=== PATIENT | female | born 1975 | race African-American/Black ===

== ENCOUNTER 2016-06-16 07:40 | Emergency (ER) | payer OTHER ==
[~2016-06-16] VITALS: Ht 167.6 cm; Wt 62.1 kg
[2016-06-16] MEDS ORDERED: NKM (07:49)
[2016-06-16 08:05] VITALS: BP 123/86
[2016-06-16] MEDS ORDERED: PERCOCET 5-3251 EACH ORAL (08:07)
[2016-06-16] MEDS ORDERED: CLINDAMYCIN HC300 MG ORAL (08:07)
[2016-06-16 08:09] VITALS: BP 123/86
--- NOTE | 2016-06-16 08:13 | Emergency Room Report ---
History of Present Illness General Chief Complaint: Toothache Source: Patient Present Illness HPI 41 YO F with left mouth pain s/p ? chipped tooth lower mouth started last night when she was biting into an apple, felt something break off, saw piece of tooth in her hand when she spit out apple. Last saw dentist 1 year ago. Has had cavities repaired in the past. Not sure if she has cavity or repair in left lower mouth. Denies floor of mouth elevation, fever/chills. Didnt take anything for pain. Didnt call dentist yet. Allergies: Coded Allergies: No Known Allergies (Unverified , 06/16/16) Patient History Past Medical History: none Past Surgical History: none Pertinent Family History: none Social History: Denies: alcohol use, drug use, smoking Last Menstrual Period: 1-13 Now: No Immunizations: UTD Reviewed Nursing Documentation: PMH: Agreed, PSxH: Agreed Nursing Documentation-PMH Past Medical History: No Stated History Review of Systems All Other Systems: negative except mentioned in HPI Physical Exam Vital Signs Date Time Temp Pulse Resp B/P Pulse Ox O2 Delivery O2 Flow Rate FiO2 06/16/16 07:43 98.4 101 18 123/86 98 Room Air Sp02 EP Interpretation: reviewed, normal General Appearance: normal inspection, well appearing, no apparent distress, alert Head: atraumatic ENT: normal ENT inspection, hearing grossly normal, normal voice, other - Left lower first molar: ?s/p root canal. Enamel appears to be chipped with underlying filling vs cavity. There is significant ttp to outside base of tooth with some inflammation/swelling at the base of tooth/gum. There is no ttp to inner left cheek soft tissue. Neck: normal inspection, full range of motion, supple, no bony tend Respiratory: normal inspection, lungs clear, normal breath sounds, no respiratory distress, no retraction, no wheezing Cardiovascular #1: regular rate, rhythm, no edema Gastrointestinal: normal inspection, normal bowel sounds, non tender, soft, no guarding, no hernia Genitourinary: no CVA tenderness Musculoskeletal: normal inspection, back normal, normal range of motion, Renetta' s Sign negative Neurologic: normal inspection, alert, responsive, speech normal Psychiatric: normal inspection, judgement/insight normal, mood/affect normal Skin: normal inspection, normal color, no rash Medical Decision Making Diagnostic Impression: Primary Impression: Toothache ER Course Left lower first molar chip/crack with ?periapical swelling, possible infection Rx Percocet, clindamcyin to tx ?infection, and dentist followup recommended DC home Last Vital Signs Date Time Temp Pulse Resp B/P Pulse Ox O2 Delivery O2 Flow Rate FiO2 06/16/16 08:05 98.4 18 123/86 98 Room Air 06/16/16 07:43 101 Status: improved Disposition: HOME, SELF-CARE Condition: Improved Scripts Clindamycin Hcl (CLINDAMYCIN HCL) 300 Mg Capsule 300 MG ORAL THREE TIMES A DAY for 7 Days, #21 CAP Prov: MICHAEL CADET M.D. 06/16/16 Oxycodone/Acetaminophen 5-325* (PERCOCET 5-325 MG TABLET*) 1 Each Tablet 1 TAB ORAL Q6H Y for For Pain, #20 TAB Prov: MICHAEL CADET M.D. 06/16/16 Patient Instructions: Dental Pain Additional Instructions: - PLEASE call Dentist TODAY to make appointment TODAY or TOMORROW for cracked/ chipped tooth (left lower first molar) - Take percocet as needed for severe pain - Apply ice to outside of mouth as well - Take clindamycin as prescribed for antibiotic for infection MICHAEL CADET M.D. Jun 16, 2016 08:13
== END 2016-06-16 08:20 | disposition home or self-care (01) ==
LOC: EMR 08:17
DX: K08.89 Other specified disorders of teeth and supporting structures (principal)
CPT/HCPCS: 99284

== ENCOUNTER 2020-03-26 15:54 | Emergency (ER) | payer OTHER ==
[~2020-03-26] VITALS: Ht 167.6 cm; Wt 61.7 kg
[~2020-03-26 15:54] MED LIST: CLINDAMYCIN HC300 MG ORAL; NKM; PERCOCET 5-3251 EACH ORAL
[2020-03-26 16:19] VITALS: BP 137/93
--- NOTE | 2020-03-26 17:02 | Emergency Room Report ---
History of Present Illness General Chief Complaint: Skin Rash/Abscess Source: Patient Present Illness HPI 44 YO female presents to the ED c/o Itching, swelling, and erythema of multiple insect bites on the upper extremities and lower extremities. Patient most concerned about 1 area in particular on her left shoulder that has increased in size and has large area of warm erythema that is developed. Patient reports seeing tiny black insects crawling around in her home and she has scheduled an worship director to come out. Pt. denies fevers, chills or swollen tender lymph nodes. Denies lesions/rashes elsewhere on the body. Denies new medications or body washes or creams. Denies swelling of the lips, tongue , throat or airway. Denies wheezing, or shortness of breath. Denies recent travel, recent illness or ill contacts. denies blisters, oral lesions, or sloughing of the skin. Denies pain at this time. Son with similar sx's. Allergies: Coded Allergies: No Known Allergies (Unverified , 06/16/16) COVID-19 Screening Contact w/high risk pt: No Experienced COVID-19 symptoms?: No COVID-19 Testing performed [employer]ER: No Patient History Past Medical History: see triage record Past Surgical History: none Pertinent Family History: none Now: No Reviewed Nursing Documentation: PMH: Agreed; PSxH: Agreed Nursing Documentation-PMH Past Medical History: No Stated History Review of Systems All Other Systems: negative except mentioned in HPI Physical Exam Vital Signs Date Time Temp Pulse Resp B/P (MAP) Pulse Ox O2 Delivery O2 Flow Rate FiO2 03/26/20 16:01 97.0 93 16 137/93 (108) 99 Room Air Sp02 EP Interpretation: reviewed, normal General Appearance: no apparent distress, alert, GCS 15, non-toxic Head: normocephalic, atraumatic Eyes: bilateral eye normal inspection, bilateral eye PERRL ENT: hearing grossly normal, normal voice, other - No swelling of the lips or tongue Neck: full range of motion, other - No stridor Respiratory: chest non-tender, lungs clear, normal breath sounds, no wheezing, speaking full sentences Cardiovascular #1: regular rate, rhythm, no edema Musculoskeletal: normal range of motion, gait/station normal, non-tender Neurologic: alert, motor strength/tone normal, oriented x3, sensory intact, responsive, speech normal Psychiatric: judgement/insight normal Skin: rash - --- Multiple small punctate discrete insect bites diffusely on lo wer extremities, upper extremities and back. One lesion on the left shoulder which is approx 0.4cm in diameter with large area of surrounding erythema with warmth. No blisters or vesicles noted. Lymphatic: no adenopathy Medical Decision Making PA Attestation Dr. Stein is my supervising Physician whom patient management has been discussed with. Diagnostic Impression: Primary Impression: Infected insect bites of multiple sites ER Course 44 YO female presents to the ED c/o Itching, swelling, and erythema of multiple insect bites on the upper extremities and lower extremities. Patient most concerned about 1 area in particular on her left shoulder that has increased in size and has large area of warm erythema that is developed. Patient reports seeing tiny black insects crawling around in her home and she has scheduled an worship director to come out. Pt. denies fevers, chills or swollen tender lymph nodes. Denies lesions/rashes elsewhere on the body. Denies new medications or body washes or creams. Denies swelling of the lips, tongue , throat or airway. Denies wheezing, or shortness of breath. Denies recent travel, recent illness or ill contacts. denies blisters, oral lesions, or sloughing of the skin. Denies pain at this time. Son with similar sx's. Ddx considered but are not limited to cellulitis, scabies, insect bites, tic bites, spider bites, contact dermatitis, Drug reaction, allergic reaction, fungal infection, lice. Vital signs: are WNL, pt. is afebrile H&PE are most consistent with multiple insect bites of the upper and lower extremities in addition to one that has secondary cellulitis ORDERS: none required at this time, the diagnosis is clinical ED INTERVENTIONS: None required at this time. DISCHARGE: At this time pt. is stable for d/c to home. Will provide printed patient care instructions, and any necessary prescriptions. Care plan and follow up instructions have been discussed with the patient prior to discharge. Last Vital Signs Date Time Temp Pulse Resp B/P (MAP) Pulse Ox O2 Delivery O2 Flow Rate FiO2 03/26/20 16:19 97.0 16 137/93 99 Room Air 03/26/20 16:01 93 Status: improved Disposition: HOME, SELF-CARE Condition: Stable Scripts Diphenhydramine Hcl* (BENADRYL*) 25 Mg Capsule 25 MG ORAL Q6H PRN for Itching, #30 CAP Prov: Lita Cerda 03/26/20 Hydrocortisone/Pramoxine (Hydrocortisone/Pramoxine 2.5%-1% Cream*) Y Cr 1 APPLIC TP Q6HR, #22 GM Prov: Lita Cerda 03/26/20 Cephalexin* (KEFLEX*) 500 Mg Capsule 500 MG ORAL EVERY 12 HOURS for 7 Days, #14 CAP 0 Refills Prov: Lita Cerda 03/26/20 Referrals: [facility]REFERRING (PCP) Patient Instructions: Insect Bite, [id number] Additional Instructions: Take medications as directed. Do not drink alcohol, drive, or operate heavy machinery while taking Benadryl as this may cause drowsiness. Follow up with a Primary Care Provider in 3-5 days, even if your symptoms have resolved. --Please review list of primary care clinics, if you do not already have a primary care provider Return sooner to ED if new symptoms occur, or current symptoms become worse. - Please note that this Emergency Department Report was dictated using [employer]lighter[employer] analysis manager technology software, occasionally this can lead to erroneous entry secondary to interpretation by the dictation equipment. Lita Cerda Mar 26, 2020 17:02
[2020-03-26] MEDS ORDERED: HYDROCORTISONE-57 GM TP (17:10)
[2020-03-26] MEDS ORDERED: CEPHALEXIN500 MG ORAL (17:10)
[2020-03-26] MEDS ORDERED: BENADRYL25 MG ORAL (17:10)
[2020-03-26 17:29] VITALS: BP 137/93
== END 2020-03-26 17:30 | disposition home or self-care (01) ==
LOC: EMR 16:35
DX: S80.862A Insect bite (nonvenomous), left lower leg, initial encounter (principal); S80.861A Insect bite (nonvenomous), right lower leg, initial encounter; S40.862A Insect bite (nonvenomous) of left upper arm, initial encounter; S40.861A Insect bite (nonvenomous) of right upper arm, initial encounter; S40.262A Insect bite (nonvenomous) of left shoulder, initial encounter; W57.XXXA Bitten or stung by nonvenomous insect and other nonvenomous arthropods, initial encounter; Y92.9 Unspecified place or not applicable
CPT/HCPCS: 99282